=== PATIENT | male | born 1945 | race Caucasian/White ===

== ENCOUNTER → 2016-11-29 | Outpatient (CLI) | payer OTHER, BC ==
[~2016-11-29] VITALS: Ht 177.8 cm; Wt 91.0 kg
[~2016-11-29] MED LIST: ADVIL PM CAPLE1 EACH PO; ALEVE220 MG PO; ATORVASTATIN CA40 MG PO; CELEBREX 200 M200 M1 PO; FLEXERIL PO; GABAPENTIN 100100 MG PO; NABUMETONE 750750 M1 PO; ZANAFLEX4 MG PO
[2016-11-29 14:21] VITALS: BP 151/69
== END | disposition home or self-care (01) ==
LOC: PAIN 14:02
DX: M54.16 Radiculopathy, lumbar region (principal); M54.9 Dorsalgia, unspecified; M47.896 Other spondylosis, lumbar region; M79.1 Myalgia; F17.210 Nicotine dependence, cigarettes, uncomplicated; Z98.890 Other specified postprocedural states

== ENCOUNTER → 2016-11-29 | Outpatient (CLI) | payer OTHER, BC | LOC: ULTRA 07:47 | DX: M47.896 Other spondylosis, lumbar region (principal); M51.36 Other intervertebral disc degeneration, lumbar region; R10.9 Unspecified abdominal pain ==

== ENCOUNTER → 2016-12-06 | Outpatient (CLI) | payer OTHER, BC ==
[~2016-12-06] VITALS: Ht 177.8 cm; Wt 89.4 kg
[2016-12-06 11:06] VITALS: BP 149/74
== END | disposition home or self-care (01) ==
LOC: PAIN 06:41
DX: M54.16 Radiculopathy, lumbar region (principal); Z98.890 Other specified postprocedural states

== ENCOUNTER 2018-03-01 00:05 | Emergency (ER) | payer OTHER, BC ==
[~2018-03-01] VITALS: Ht 180.3 cm; Wt 93.0 kg
[2018-03-01] MEDS ORDERED: OXYCODONE HCL 55 MG PO (02:36)
== END 2018-03-01 04:19 | disposition home or self-care (01) ==
LOC: ER 00:05
DX: M25.552 Pain in left hip (principal); M54.9 Dorsalgia, unspecified; F17.210 Nicotine dependence, cigarettes, uncomplicated; Z96.652 Presence of left artificial knee joint

== ENCOUNTER → 2018-03-03 | Outpatient (CLI) | payer OTHER, BC ==
[~2018-03-03] VITALS: Ht 177.8 cm; Wt 91.6 kg
[~2018-03-03] MED LIST changes: +OXYCODONE HCL 55 MG PO
--- NOTE | ~2018-03-03 | HPC ---
[facility] [address] [address] PAIN MANAGEMENT CONSULTATION Name: SRI LUCAS Room #: REG [facility]..#: [id number] Admission: 03/03/18 Attend Phys: Damián Caro DO Discharge: Date of : 45 Report #: [id number] THIS REPORT FOR: //name// CC: Yang DOZIER MD DATE OF SERVICE: 03/03/2018 CHIEF COMPLAINT: Low back pain, left lower extremity pain with paresthesias. HISTORY OF PRESENT ILLNESS: As you know, the patient is a 72-year-old male who has been followed on and off for over 3 years for lumbar radicular symptoms. As you are aware, the patient suffers from significant neural foraminal stenosis, the source of the patient's pain. The patient apparently was doing well, was in his normal state of health when he began to experience increasing left lower extremity pain, which took him to the hospital. He was seen in consultation at the Emergency Department where he was evaluated and treated medically and discharged home with plans to follow up with us to try next in the series of epidural injections. Due to scheduling conflicts, the patient was placed on my schedule. He typically follows with either Dr. Cabezas or Dr. Jha for injections. He has been placed on my schedule to trial an epidural injection to determine if his symptoms would be amenable. The patient indicates today pain is at the level of 3-4/10. He indicates the pain impact score of 43/70 indicating tugfzaxa-kd-qwlxzw interference. He indicates pain is aching and burning in sensation; exacerbated with movement, getting in and out of chair; improves with sitting, medications. He has been referred back to our clinic by the Emergency Department to trial an epidural injection. ALLERGIES: No reported drug allergies. CURRENT MEDICATIONS: Atorvastatin 40 mg per day, oxycodone 5 mg 3 times a day p.r.n. SOCIAL HISTORY: The patient is a tobacco smoker, half-pack tobacco per day and has done so for years. He denies IV or illicit drug use. Admits to 2 alcoholic beverages weekly. He is accompanied by his who is present in room today. IMAGING: CT lumbar spine obtained on 03/01/2018 shows T12-L1 unremarkable. L1-L2 unremarkable. L2-L3 shows broad-based posterior disk bulge with posterior osteophytic ridging resulting in mild thecal sac narrowing, no CT evidence of central canal stenosis, there is foraminal bulging, kgnu-nu-mtyzhalf facet arthropathy at L3-L4, diffuse posterior disk bulge mildly effacing the ventral thecal sac, wiujfves-da-unfabu bilateral facet arthrosis, no central canal stenosis, there is mild right and severe left neural foraminal stenosis with effacement of the left exiting L3 nerve root. L4-L5, right synovial cyst [address] [address] PAIN MANAGEMENT CONSULTATION Name: SRI LUCAS Room #: REG CL Zaheer#: [id number] Admission: 03/03/18 Attend Phys: Damián Caro DO Discharge: Date of : 45 Report #: [id number] projecting anteriorly, medially to the right causing tiny pocket of gas. L5-S1, no significant central canal, dalhjyca-yo-chdspo bilateral facet arthrosis, moderate right and moderate left neural foraminal narrowing. PQRS: The patient has osteoarthritis of the knee and the lumbar spine, no rheumatoid arthritis. He is placing pain intensity 3/10. He is not a fall risk, has not had a fall in the last 3 months. He is not on blood thinners. He is not treated for hypertension. He is not on long-term opioids. He is at a low risk for opioid addiction. Functional assessment pain impact tool indicates 43/70, moderate. PHYSICAL EXAMINATION: VITAL SIGNS: Blood pressure 141/63, pulse 72, respiratory rate 16 and unlabored. The patient is 100% on room air. Height 5 feet 10 inches tall, weight 202 pounds, BMI calculated at 29.0. GENERAL: Well-developed, well-nourished, well-hydrated, 72-year-old male. He appears stated age. Pain is rated today at around 3-4/10. HEENT: Normocephalic, atraumatic. Pupils equal, round, reactive to light. Extraocular muscles are intact. Sclerae nonicteric without injection. NEUROLOGIC: Cranial nerves 2 through 12 grossly intact. Speech fluent. The patient deemed a fair historian. LUNGS: Clear. No wheeze, rhonchi or rales. CARDIOVASCULAR: Regular. No appreciable gallop, no rub. ABDOMEN: Soft, nontender, nondistended, normoactive bowel sounds. EXTREMITIES: Show no clubbing, no cyanosis, no edema. MUSCULOSKELETAL: Lower extremity strength is symmetrical 5/5. Hip flexion on the left when compared to the right does cause generation of pain radiating in the typical L3 distribution. Muscle bulk and tone appears equal and symmetrical when comparing left lower extremity to right. Ankle clonus negative. Babinski is negative. Deep tendinous reflexes are symmetrical at patella and Achilles. Gait is antalgic favoring left lower extremity over right. Seated straight leg raising positive on the left. Supine straight leg raising positive on the left. ASSESSMENT: 1. Lumbar radiculopathy. 2. Severe neural foraminal stenosis of lumbar spine. 3. Displacement of lumbar intervertebral disk with radiculopathy. 4. Lumbosacral spondylosis with radiculopathy. 5. Facet arthropathy of the lumbar spine. 6. Chronic intractable pain. PLAN: 1. The patient has returned to our clinic and was placed on my schedule today due to scheduling conflicts as the patient typically follows with either Dr. Cabezas or Dr. Jha. He was placed on today's schedule to undergo a lumbar epidural injection under fluoroscopic guidance for recent hospital visit to the [address] [address] PAIN MANAGEMENT CONSULTATION Name: SRI LUCAS Room #: REG [facility].#: [id number] Admission: 03/03/18 Attend Phys: Damián Caro DO Discharge: Date of : 45 Report #: [id number] Emergency Department for recurrent lumbar radiculopathy. Symptoms based on his description and distribution do correlate with findings at the L3-L4 level. The patient has sought evaluation from Neurosurgery who had indicated he is ultimately going to have to undergo surgery, but to trial conservative treatment options first. He has done very well with injections in the past. He has been referred back to trial an injection today. The patient was advised risks and benefits of a lumbar epidural injection. These risks include but are not necessarily limited to bleeding, bruising, infection, worsening pain, no relief of pain, also risk of temporary or permanent muscle weakness, temporary or permanent nerve damage, possible paralysis and . The patient states he understood and wished to proceed. 2. The patient will be scheduled back with Dr. Cabezas or Dr. Jha, the typical pain physician to undergo the possible next in the series of epidural injections. PROCEDURE NOTE DESCRIPTION OF PROCEDURE: L4-L5 left paramedian epidural steroid injection under fluoroscopic guidance. After obtaining written consent, the patient was taken back to fluoroscopy suite, placed in prone position with pillow under abdomen to decrease lumbar lordosis. Skin overlying the lumbosacral area was then prepped and draped in aseptic fashion. L5-S1 vertebral interspace was identified by AP fluoroscopy. Skin and subcutaneous tissue overlying target site of injection was anesthetized with 3 mL of 1% lidocaine. A 20-gauge 3-1/2 inch Tuohy needle was advanced under fluoroscopic guidance towards the epidural space using left paramedian approach. Epidural space was identified using loss of resistance to air technique. After negative aspiration for heme or cerebrospinal fluid, 1 mL of Omnipaque was injected. Lumbar epidurogram confirmed using both AP and lateral fluoroscopy. After negative aspiration for heme or cerebrospinal fluid, 4 mL of a solution containing 2 mL 40 mg per mL, 80 mg total triamcinolone, 2 mL of lidocaine 1% injected slowly. Needle retracted nursing home, flushed with 1 mL of 1% lidocaine and removed. Sterile bandage placed over injection site. No new motor deficits present in lower extremity following procedure. The patient tolerated the procedure well, carefully [place] [address] PAIN MANAGEMENT CONSULTATION Name: TUSHARKenrickSRI Room #: REG [facility]#: [id number] Admission: 03/03/18 Attend Phys: Damián Caro DO Discharge: Date of : 45 Report #: [id number] stable condition. No apparent complications. After meeting discharge criteria, the patient discharged home. <ELECTRONICALLY SIGNED> By: Damián Caro DO 03/04/18 [id number] Damián Caro DO /nt
[2018-03-03 10:53] VITALS: BP 141/63
== END | disposition home or self-care (01) ==
LOC: PAIN 06:57
DX: M51.16 Intervertebral disc disorders with radiculopathy, lumbar region (principal); M99.73 Connective tissue and disc stenosis of intervertebral foramina of lumbar region; M47.26 Other spondylosis with radiculopathy, lumbar region; M12.88 Other specific arthropathies, not elsewhere classified, other specified site; G89.29 Other chronic pain; F17.210 Nicotine dependence, cigarettes, uncomplicated; Z79.899 Other long term (current) drug therapy

== ENCOUNTER → 2018-06-03 | Outpatient (CLI) | payer OTHER, BC ==
[~2018-06-03] VITALS: Ht 177.8 cm; Wt 91.7 kg
[~2018-06-03] MED LIST changes: +ALEVE220 M1 PO
--- NOTE | ~2018-06-03 | HPC ---
[facility] [address] [place] [address] PAIN MANAGEMENT CONSULTATION Name: SRI LUCAS Room #: REG [facility]..#: [id number] Admission: 06/03/18 Attend Phys: Damián Caro DO Discharge: Date of : 45 Report #: [id number] THIS REPORT FOR: //name// CC: Yang Guy MD DATE OF SERVICE: 06/03/2018 REFERRING PHYSICIAN: Dr. Yang Gloria. CHIEF COMPLAINT: Low back pain and left lower extremity pain with paresthesias. HISTORY OF PRESENT ILLNESS: As you know, the patient is a 72-year-old male who has had lumbar radicular symptoms on and off for years. He has undergone multiple epidural injections under fluoroscopic guidance with good and prolonged benefit. The most recent epidural injection was provided on 03/03/2018. He has been doing well but unfortunately, his symptoms have begun to return. As you are aware, the patient has severe neural foraminal stenosis causing compression of a nerve root and subsequent left leg pain. He returns today in followup visit requesting to undergo a lumbar epidural injection under fluoroscopic guidance to address lumbar radicular symptoms. As indicated above, the patient has received excellent benefit with previous epidural injections, most recent providing 100% improvement in overall pain lasting for nearly 2-1/2 months. He returns to undergo next in the series. ALLERGIES: No known drug allergies. CURRENT MEDICATIONS: Atorvastatin 40 mg per day and naproxen 220 mg 2 tabs p.o. at bedtime. SOCIAL HISTORY: The patient is a tobacco smoker, half pack tobacco per day, has done so for years. Denies IV or illicit drug use. Admits to 2 alcohol beverages weekly. He is unaccompanied today. IMAGING DATA: No new imaging available. PQRS: The patient has known osteoarthritic changes of the knees and lumbar spine. No rheumatoid arthritis. He is placing current pain intensity at 2/10. He is not a fall risk, has not had fallen in the last 3 months. He is not on blood thinners. He is not treated for hypertension. He is not on any opioids. His pain impact tool indicates a 35/70, moderate interference of daily activities secondary to pain. PHYSICAL EXAMINATION: [facility] [address] [place] [address] PAIN MANAGEMENT CONSULTATION Name: SRI LUCAS Room #: REG [facility].#: [id number] Admission: 06/03/18 Attend Phys: Damián Caro DO Discharge: Date of : 45 Report #: [id number] VITAL SIGNS: Blood pressure 150/70, pulse 69 and respiratory rate 17 and unlabored. The patient is 97% on room air. Height 5 feet 10 inches tall, weight 202.2 pounds and BMI calculated 29.0. GENERAL: Well-developed, well-nourished, well-hydrated 72-year-old male appearing stated age, placing current pain score 2/10. HEENT: Normocephalic and atraumatic. Pupils equal, round and reactive to light. EXTREMITIES: Show no clubbing, no cyanosis and no edema. MUSCULOSKELETAL: Lower extremity strength is equal and symmetrical 5/5. Hip strength is unaffected with flexion or extension. Seated straight leg raising negative. Supine straight leg raising positive on the left. Aakash's test negative. Modified Gaenslen's positive for axial low back pain. Gait antalgic favoring left lower extremity over right. ASSESSMENT: 1. Symptomatic lumbar radiculopathy. 2. Severe neural foraminal stenosis of the lumbar spine. 3. Displacement of the lumbar intervertebral disk with radiculopathy. 4. Lumbosacral spondylosis with radiculopathy. 5. Facet arthropathy of the lumbar spine. 6. Chronic intractable pain. PLAN: 1. The patient returns today in followup visit requesting to undergo epidural injection under fluoroscopic guidance. The patient reports 100% improvement in overall pain lasting for nearly 2-1/2 months with previous epidural injection. He returns today in followup visit to undergo next in the series. He has been advised risks and benefits, states understood and wished to proceed. 2. No medication changes made at today's visit. The patient to continue current medical therapy as previously prescribed. 3. We will see the patient back in followup visit on an as needed basis for the next in the series of epidural injections. PROCEDURE NOTE DESCRIPTION OF PROCEDURE: L4-L5 left paramedian epidural steroid injection under fluoroscopic guidance. After obtaining written consent, the patient was taken back to fluoroscopy suite, placed in prone position with pillow under abdomen to decrease lumbar lordosis. Skin overlying lumbosacral area then prepped and draped in aseptic fashion. The lumbar intervertebral spaces were identified by AP fluoroscopy. Skin and subcutaneous tissue overlying target site of injection was anesthetized with 3 mL of 1% lidocaine. A 20-gauge 3-1/2 inch Tuohy needle advanced under fluoroscopic guidance towards [address] [address] PAIN MANAGEMENT CONSULTATION Name: SRI LUCAS Room #: REG CL Rm#: [id number] Admission: 06/03/18 Attend Phys: Damián Caro DO Discharge: Date of : 45 Report #: [id number] the epidural space using a left paramedian approach. Epidural space identified using loss of resistance to air technique. After negative aspiration for heme or cerebrospinal fluid, 1 mL of Omnipaque injected. Lumbar epidurogram confirmed using both AP and lateral fluoroscopy. After negative aspiration for heme or cerebrospinal fluid, 5 mL of a solution containing 2 mL 40 mg per mL, 80 mg total triamcinolone, 3 mL lidocaine 1% injected slowly. Needle retracted assisted, flushed with 1 mL of 1% lidocaine and removed. Sterile bandage placed over injection site. No new motor deficits present in lower extremity following procedure. The patient tolerated procedure well, carefully escorted to recovery room in stable condition. No apparent complication. After meeting discharge criteria, the patient discharged home. By: [id number] Damián Caro DO /nt
[2018-06-03 08:02] VITALS: BP 150/70
--- NOTE | 2018-06-03 08:10 | NUR ---
Pain Clinic Assessment: 1. History of Osteoarthritis: knee spine History of Rheumatoid Arthritis: none 2. Height: 5 ft. 10 in. 177.8 cm. Weight: 202.2 lb. oz. 91.717 kg. Patient's BMI: 29.0 3. Vital Signs: BP: 150/70 Pulse: 69 Resp: 17 Temp: 02 Sat: 97 ECG Mon: 4. Pain Intensity: 2 5. Fall Risk: Dizziness: N Needs help standing or walking: N Fallen in the last 3 months: N Fall risk comments: 6. Patient on Blood Thinner: None 7. History of Hypertension: N 8. Opioid Therapy greater than 6 weeks: N Opiate Contract Signed: 9. Risk Assessment Tool Provided: 10. Functional Assessment Tool: 11. Recreational Drug Use: Never Drug Type: Tobacco Use: Current Every Day Smoker Tobacco Type: Cigarettes Amount or Packs/day: 4-5 CIGS DAY How Many Years: Alcohol Use: Yes Frequency: Weekly Quant: 1-2
== END | disposition home or self-care (01) ==
LOC: PAIN 07:39
DX: M51.16 Intervertebral disc disorders with radiculopathy, lumbar region (principal); M48.061 Spinal stenosis, lumbar region without neurogenic claudication; M47.27 Other spondylosis with radiculopathy, lumbosacral region; M46.96 Unspecified inflammatory spondylopathy, lumbar region; G89.29 Other chronic pain; F17.210 Nicotine dependence, cigarettes, uncomplicated; M19.90 Unspecified osteoarthritis, unspecified site; Z79.899 Other long term (current) drug therapy; Z98.890 Other specified postprocedural states